=== PATIENT | male | born 1955 | race Caucasian/White ===

== ENCOUNTER 2017-01-31 19:50 | Observation (INO) | payer BC ==
[~2017-01-31] VITALS: Ht 167.6 cm; Wt 142.0 kg
[2017-01-31 20:45] LABS: BASO % 0.4 % (0.2-1.2); EOS # 0.2 10_X3_uL (0.0-0.5); EOS % 1.8 % (0.8-7.0); GRAN # 7.3 10_X3_uL (1.8-5.4); GRAN % 72.2 % (34.0-67.9); HEMATOCRIT 39.6 % (40-51); HEMOGLOBIN 13.2 g/dL (13.7-17.5); LYMPH # 1.5 10_X3_uL (1.3-3.6); MEAN CORPUSCULAR HEMOGLOBIN 29.5 pg (27.0-33.0); MEAN CORPUSCULAR HGB CONC 33.3 g/dL (32.0-36.0); MEAN CORPUSCULAR VOLUME 88.6 fL (79-92); MEAN PLATELET VOLUME 9.9 fl (7.5-11.5); MONO # 1.1 10_X3_uL (0.3-0.8); MONO % 10.6 % (5.3-12.2); PLATELET COUNT 363 x10_3/uL (163-337); RED BLOOD COUNT 4.47 x10_6/uL (4.6-6.1); RED CELL DISTRIBUTION WIDTH 14.9 % (11.6-14.4); WHITE BLOOD COUNT 10.1 x10_3/uL (4.2-9.1)
[2017-01-31 20:55] LABS: CALCIUM 9.8 mg/dL (8.7-10.7); CARBON DIOXIDE 33 mmol/L (21-32); CREATININE 1.1 mg/dL (0.6-1.3); GLUCOSE,RANDOM 162 mg/dL (70-99); POTASSIUM 3.8 mmol/L (3.5-5.1); SODIUM 135 mmol/L (136-145)
[2017-01-31 20:57] LABS: BLOOD UREA NITROGEN 22 mg/dL (7-18)
[2017-02-01 07:04] LABS: HEMATOCRIT 40.5 % (40-51); HEMOGLOBIN 13.1 g/dL (13.7-17.5); MEAN CORPUSCULAR HEMOGLOBIN 28.8 pg (27.0-33.0); MEAN CORPUSCULAR HGB CONC 32.3 g/dL (32.0-36.0); MEAN PLATELET VOLUME 10.2 fl (7.5-11.5); RED BLOOD COUNT 4.55 x10_6/uL (4.6-6.1); RED CELL DISTRIBUTION WIDTH 14.9 % (11.6-14.4); WHITE BLOOD COUNT 9.7 x10_3/uL (4.2-9.1)
[2017-02-01 07:16] LABS: ALBUMIN 3.4 gm/dL (3.4-5.0); ALKALINE PHOSPHATASE 182 U/L (50-136); ALT/SGPT 44 U/L (7.53-40.17); AST/SGOT 39 U/L (6.66-35.34); BILIRUBIN,TOTAL 0.48 mg/dL (0.0-1.0); BLOOD UREA NITROGEN 18 mg/dL (7-18); CALCIUM 9.7 mg/dL (8.7-10.7); CARBON DIOXIDE 34 mmol/L (21-32); CREATININE 0.9 mg/dL (0.6-1.3); GLUCOSE,RANDOM 132 mg/dL (70-99); POTASSIUM 3.5 mmol/L (3.5-5.1); SODIUM 138 mmol/L (136-145); TOTAL PROTEIN 6.9 gm/dL (6.4-8.2)
[2017-02-02 06:44] LABS: HEMATOCRIT 40.4 % (40-51); HEMOGLOBIN 13.1 g/dL (13.7-17.5); MEAN CORPUSCULAR HEMOGLOBIN 28.8 pg (27.0-33.0); MEAN CORPUSCULAR HGB CONC 32.4 g/dL (32.0-36.0); MEAN CORPUSCULAR VOLUME 88.8 fL (79-92); RED BLOOD COUNT 4.55 x10_6/uL (4.6-6.1); RED CELL DISTRIBUTION WIDTH 14.9 % (11.6-14.4); WHITE BLOOD COUNT 12.5 x10_3/uL (4.2-9.1)
[2017-02-02 06:47] LABS: BLOOD UREA NITROGEN 17 mg/dL (7-18); CARBON DIOXIDE 30 mmol/L (21-32); GLUCOSE,RANDOM 261 mg/dL (70-99); POTASSIUM 3.4 mmol/L (3.5-5.1); SODIUM 135 mmol/L (136-145)
== END 2017-02-02 14:15 | disposition home or self-care (01) ==
LOC: ER 19:50 → MS 22:23
PROVIDERS: General Practice; ADMIT Family Medicine
DX: J18.9 Pneumonia, unspecified organism (principal); R09.02 Hypoxemia; G47.33 Obstructive sleep apnea (adult) (pediatric); E11.65 Type 2 diabetes mellitus with hyperglycemia; R94.6 Abnormal results of thyroid function studies; E87.6 Hypokalemia; J90 Pleural effusion, not elsewhere classified; K76.0 Fatty (change of) liver, not elsewhere classified; E66.01 Morbid (severe) obesity due to excess calories; I11.0 Hypertensive heart disease with heart failure; I50.9 Heart failure, unspecified; N40.0 Benign prostatic hyperplasia without lower urinary tract symptoms; K21.9 Gastro-esophageal reflux disease without esophagitis; I25.10 Atherosclerotic heart disease of native coronary artery without angina pectoris; E03.9 Hypothyroidism, unspecified; G89.29 Other chronic pain; F41.9 Anxiety disorder, unspecified; G25.81 Restless legs syndrome; K12.0 Recurrent oral aphthae; Z79.02 Long term (current) use of antithrombotics/antiplatelets; Z79.899 Other long term (current) drug therapy; Z79.84 Long term (current) use of oral hypoglycemic drugs; Z79.1 Long term (current) use of non-steroidal anti-inflammatories (NSAID); Z95.5 Presence of coronary angioplasty implant and graft; Z68.43 Body mass index [BMI] 50.0-59.9, adult
CPT/HCPCS: 36415; 71250; 80048; 80053; 80061; 82962; 83036; 83605; 83880; 84443; 85025; 87040; 94660; 96365; 96366; 96367; 96372; 99070; 99284-25; G0378